=== PATIENT | female | born 1965 | race Caucasian/White ===

== ENCOUNTER 2025-03-02 13:29 | Outpatient (CLI) | payer MEDICARE, MEDICAID | END 2025-03-02 23:59 | disposition home or self-care (01) | LOC: MRI 13:29 | PROVIDERS: ATTEND Family Medicine Sports Medicine | DX: M25.461 Effusion, right knee (principal); M25.561 Pain in right knee; M71.21 Synovial cyst of popliteal space [Baker], right knee | CPT/HCPCS: 73721 ==

== ENCOUNTER 2025-10-02 13:36 | Outpatient (CLI) | payer MEDICARE, OTHER ==
--- NOTE | 2025-10-02 20:09 | RADIOLOGY REPORT ---
EXAM: MR MRI LOWER EXTREMITY RIGHT INDICATION: Pain in the right foot TECHNIQUE: Multiplanar, multisequence imaging of the right foot without contrast COMPARISON: MR MRI LOWER EXTREMITY RIGHT on DOS: 03/02/25 FINDINGS: BONES: No MR evidence of an acute fracture, osseous contusion, or aggressive focal osseous lesion. Dorsal spurring of the dorsal anterior aspect of the talus. Question sequelae of prior injury. MUSCLES: Normal signal intensity and morphology. TENDONS: Intact. LIGAMENTS: Intact. JOINT SPACES: No joint effusion. NEUROVASCULAR: Normal. OTHER: None. IMPRESSION: 1. No MR evidence of significant internal derangement. 2. No joint effusion. No abnormal bone marrow edema.
== END 2025-10-02 23:59 | disposition home or self-care (01) ==
LOC: MRI02 13:36
PROVIDERS: ATTEND Family Medicine Sports Medicine
DX: M17.11 Unilateral primary osteoarthritis, right knee (principal); M25.562 Pain in left knee; M25.561 Pain in right knee; M77.9 Enthesopathy, unspecified; M79.10 Myalgia, unspecified site
CPT/HCPCS: 73718